=== PATIENT | female | born 1950 | race Caucasian/White ===

== ENCOUNTER → 2024-11-26 10:37 | Outpatient (REF) | payer MEDICARE, SELFPAY | LOC: EMG 10:37 | PROVIDERS: ATTENDING PHYSICIAN Physician Assistant Medical | DX: M79.671 Pain in right foot (principal); M79.672 Pain in left foot; R20.0 Anesthesia of skin | CPT/HCPCS: 95886; 95911 ==

== ENCOUNTER → 2025-01-14 12:16 | Outpatient (REF) | payer MEDICARE, SELFPAY ==
[2025-01-14 13:05] VITALS: BP 132/74; BP_SYST 73
== END ==
LOC: RADI 12:16
PROVIDERS: ATTENDING PHYSICIAN Surgery; FAMILY PHYSICIAN Physician Assistant Medical
DX: R59.0 Localized enlarged lymph nodes (principal)
CPT/HCPCS: 38505; 76942; 88172; 88173; 88177